=== PATIENT | male | born 1970 ===

== ENCOUNTER 2016-09-14 07:30 | Inpatient (IN) | payer OTHER ==
[~2016-09-14] VITALS: Ht 162.6 cm; Wt 81.6 kg
[2016-12-07] MEDS ORDERED: OMEGA 3-6-9 CO400 MG PO (12:13)
[2016-12-08] VITALS (10 sets, daily range): BP systolic 114–131; BP diastolic 73–89
[2016-12-08] MEDS ORDERED: Vancomycin 1gm inj IVPB ONE (06:35)
[2016-12-08] MEDS ORDERED: Surgicel 4in x 8in TOPIC ONE (06:35)
[2016-12-08] MEDS ORDERED: Bacitracin 50000 Units Vial ONE (06:35)
[2016-12-08] MEDS ORDERED: Thrombin 5000 units TOPIC ONE (06:35)
[2016-12-08] MEDS ORDERED: Bupivacaine w/Epi 0.5% 30ml Vial INJ ONE (06:35)
[2016-12-08] MEDS ORDERED: Lacri-Lube Opth Oint 3.5gm ONE (06:35)
--- NOTE | 2016-12-08 06:44 | Anethesia Preoperative Eval ---
Anesthesia Pre-op PMH/ROS General Date of Evaluation: Dec 08, 2016 Anesthesiologist: Erwin ASA Score: ASA 2 Mallampati Score Class I : Soft palate, uvula, fauces, pillars visible Class II: Soft palate, uvula, fauces visible Class III: Soft palate, base of uvula visible Class IV: Only hard plate visible Mallampati Classification: Class II Surgeon: Alma Rosa Diagnosis: Lumbar radicuopathy Surgical Procedure: L4-5, L5-S1 hemilaminotomy, foraminotomy, decompression Anesthesia History: none Family History: no anesthesia problems Allergies: Coded Allergies: No Known Allergies (Unverified , 12/07/16) Medications: see eMAR Past Medical History Cardiovascular: Reports: HTN, other - HLD, Denies: CAD, MO, arrhythmia, valve dz Pulmonary: Denies: COPD, HOLLY, asthma, other Gastrointestinal/Genitourinary: Reports: GERD - gastritis, with prior gi bleed , other - BPH, Denies: CRI, ESRD Neurologic/Psychiatric: Denies: CVA, TIA, dementia, depression/anxiety, other Endocrine: Denies: DM, hypothyroidism, other, steroids HEENT: Denies: SHOALWATER (L), SHOALWATER (R), cataract (L), cataract (R), glaucoma, other Hematology/Immune: Denies: DVT, anemia, bleeding disorder, other Musculoskeletal/Integumentary: Denies: DDD, DJD, OA, RA, edema, other PSxH Narrative: Denies Anesthesia Pre-op Phys. Exam Physician Exam Last Vital Signs Date Time Temp Pulse Resp B/P Pulse Ox O2 Delivery O2 Flow Rate FiO2 12/08/16 06:38 98.2 63 20 130/85 98 Room Air Constitutional: NAD Cardiovascular: RRR Respiratory: CTA Airway Exam Mallampati Score: Class II MO: limited ROM: full Teeth: intact Anesthesia Pre-op A/P Labs see chart Studies Pre-op Studies: EKG - SB Risk Assessment & Plan Assessment: ASA II Plan: GA Status Change Before Surgery: No Pre-Antibiotics Drug: Ancef 2g Given Within 1 Hr of Incision: Yes Time Given: 07:20 RIVKA CAVAZOS M.D. Dec 08, 2016 06:43
[2016-12-08] MEDS ORDERED: Ranitidine 50mg/2ml Inj ONE (07:00)
[2016-12-08] MEDS ORDERED: ceFAZolin 2gm/50ml Premix 50 ML IVPB ONE (07:00)
[2016-12-08] MEDS ORDERED: Midazolam 2mg/2ml Inj ONE (07:00)
[2016-12-08] MEDS ORDERED: Lidocaine 1% MPF 10mg/ml 5ml ONE (07:00)
[2016-12-08] MEDS ORDERED: Labetalol 5mg/ml 20ml vial IV ONE (07:00)
[2016-12-08] MEDS ORDERED: Propofol 10mg/ml 20ml IV ONE (07:00)
[2016-12-08] MEDS ORDERED: fentaNYL 250mcg/5ml ONE (07:00)
[2016-12-08] MEDS ORDERED: NS Irrig 1000ml ONE (07:00)
[2016-12-08] MEDS ORDERED: LR 1000ml ONE (07:00)
[2016-12-08] MEDS ORDERED: Zemuron 50mg/5ml Inj IV ONE (07:00)
[2016-12-08] MEDS ORDERED: Sterile Water Irrig 1000ml IRRIG ONE (07:00)
[2016-12-08] MEDS ORDERED: Metoclopramide 10mg/2ml Inj ONE (07:00)
[2016-12-08] MEDS ORDERED: Dexamethasone 4mg/ml vial ONE (07:00)
--- NOTE | 2016-12-08 07:17 | Pre-Procedure Note/Attestation ---
Pre-Procedure Note/Attestation Complete Prior to Procedure Planned Procedure: left Procedure Narrative: Left sided L45,5S1 hemilaminotomy foraminotomy microdiscectomy Indications for Procedure Pre-Operative Diagnosis: L45 and L5S1 herniation Attestation I attest that I discussed the nature of the procedure; its benefits; risks and complications; and alternatives (and the risks and benefits of such alternatives ), prior to the procedure, with the patient (or the patient's legal development representative). I attest that, if there was a reasonable possibility of needing a blood transfusion, the patient (or the patient's legal development representative) was given the [facility] standardized written summary, pursuant to the [place] Blood Safety Act ([place] Health and Safety Code # 1645, as amended). I attest that I re-evaluated the patient just prior to the surgery and that there has been no change in the patient's H&P, except as documented below: JJ ORELLANA Dec 08, 2016 07:17
--- NOTE | 2016-12-08 07:18 | Brief Operative Note ---
Immediate Post Operative Note Operative Note Chief Complaint: intractable back and leg pain Pre-op Diagnosis: L45 and L5S1 herniation Procedure: Left sided L45,5S1 hemilaminotomy foraminotomy microdiscectomy Post-op Diagnosis: same as pre-op Findings: consistent w/pre-op dx studies Surgeon: Alma Rosa Certified Juvenile Probation Officer: Shelbie Anesthesia: general Complications: none Condition: stable Estimated Blood Loss: minimal Implant(s) used?: JJ Bullock Dec 08, 2016 07:18
[2016-12-08] MEDS ORDERED: LR 1000ml 1,000 ML IVLG SCH (08:02)
--- NOTE | 2016-12-08 08:02 | Immediate Post-Op Evaluation ---
Immediate Post-Op Evalulation Immediate Post-Op Evalulation Procedure: L4-5, L5-S1 hemilaminotomy, foraminotomy, decompression Date of Evaluation: Dec 08, 2016 Time of Evaluation: 09:20 IV Fluids: 1.4L Blood Products: 0 Estimated Blood Loss: 150 Urinary Output: 250 Blood Pressure Systolic: 116 Blood Pressure Diastolic: 74 Pulse Rate: 63 Respiratory Rate: 16 O2 Sat by Pulse Oximetry: 99 Temperature (Fahrenheit): 97.4 Pain Score (1-10): 0 Nausea: No Vomiting: No Complications 0 Patient Status: awake, reacts, patent, none Hydration Status: adequate Drug: Ancef 2g Given Within 1 Hr of Incision: Yes Time Given: 07:20 RIVKA CAVAZOS M.D. Dec 08, 2016 08:02
[2016-12-08] MEDS ORDERED: DiphenhydrAMINE 50mg/ml Inj IVP PRN (08:15)
[2016-12-08] MEDS ORDERED: fentaNYL 100 mcg/2 mL IV PRN (08:15)
[2016-12-08] MEDS ORDERED: Hydromorphone 0.5mg/0.5ml inj IVP PRN (08:15)
[2016-12-08] MEDS ORDERED: Labetalol 5mg/ml 20ml vial IV PRN (08:15)
[2016-12-08] MEDS ORDERED: Metoclopramide 10mg/2ml Inj IVP PRN ×3 (08:15→11:00)
[2016-12-08] MEDS ORDERED: Midazolam 2mg/2ml Inj IVP PRN (08:15)
--- NOTE | 2016-12-08 10:51 | Diagnostic Imaging Report ---
Indication: PAIN, intraoperative Technique: Digital intraoperative imaging Comparison: None Findings: Intraoperative images demonstrate surgical tool projected posterior to what is presumably the L5 vertebral body Impression: Intraoperative imaging, as described
[2016-12-08] MEDS ORDERED: Naloxone 0.4mg/ml Inj IVP PRN (11:00)
[2016-12-08] MEDS ORDERED: Norco 5mg/325mg tab ORAL PRN (11:00)
[2016-12-08] MEDS ORDERED: Norco 7.5mg/325mg tab ORAL PRN ×2 (11:00)
[2016-12-08] MEDS ORDERED: HYDROmorphone 1mg/ml Carpuject SUBQ PRN (11:00)
[2016-12-08] MEDS ORDERED: Milk of Magnesia 30ml Ud ORAL PRN (11:00)
[2016-12-08] MEDS ORDERED: HYDROmorphone 1mg/ml Carpuject IVP PRN (11:00)
[2016-12-08] MEDS: NS w/KCl 20mEq 1,000 ML IV SCH ×3 (12:02→22:19)
[2016-12-08] MEDS: Dexamethasone 4mg/ml vial IVP SCH ×2 (12:02→18:12)
[2016-12-08] MEDS: ceFAZolin sod 1 GM in D5W 55 ML IV SCH ×2 (16:01→22:18)
--- NOTE | 2016-12-08 17:15 | Consultation ---
History of Present Illness General Date patient seen: Dec 08, 2016 Time patient seen: 17:13 Chief Complaint: low back pain Referring physician: Erlin St MD Reason for Consultation: managment of medical issues in postop setting Present Illness HPI 46 y/o man with hx of lumbar stenosis with radiculopathy from lumbar disk herniation, s/p Left sided L45,5S1 hemilaminotomy foraminotomy microdiscectomy earlier today, no periop or postop complications. Postop pain well controlled. No chest pain or dyspnea, no n/v. Allergies: Coded Allergies: No Known Allergies (Unverified , 12/07/16) Medication History Scheduled Fish Oil/Borage/Flax/Om3,6,9#1 ([place] 3-6-9 Complex Softgel), 2,000 MG PO TID, ( Reported) Patient History History Provided By: Patient Healthcare decision maker CHYNA Resuscitation status Full Code Advanced Directive on File No Past Medical/Surgical History Past Medical/Surgical History: (1) HNP (herniated nucleus pulposus), lumbar Family History Family History: (1) Family history in first degree relatives is unremarkable Social History Social History: (1) No significant social history Review of Systems Constitutional: Denies: chills, fever, malaise, no symptoms, other, see HPI, sweats, weakness Eye: Denies: acuity changes, blurred vision, discharge, double vision, eye pain , no symptoms, nose congestion, nose pain, other, see HPI, tearing ENT: Denies: ear discharge, ear pain, hearing loss, mouth pain, nasal discharge , no symptoms, nose congestion, nose pain, other, see HPI, throat pain, throat swelling Respiratory: Denies: GRIFFITH, cough, no symptoms, orthopnea, other, see HPI, shortness of breath, sputum, stridor, wheezing Cardiovascular: Denies: PND, chest pain, edema, no symptoms, other, palpitations, see HPI, syncope Gastrointestinal: Denies: abdominal pain, constipation, diarrhea, hematemesis, melena, nausea, no symptoms, other, see HPI, vomiting Genitourinary: Denies: discharge, dysuria, frequency, hematuria, incontinence, no symptoms, other, pain, retention, see HPI, urgency, vag bleed/dc Musculoskeletal: Reports: back pain Skin: Denies: change in color, change in hair/nails, dryness, lesions, no symptoms, other, rash, see HPI Psychiatric: Denies: HI, SI, anxiety, depressed feelings, emotional problems, hallucinations, no symptoms, other, prior hx, see HPI Endocrine: Denies: excessive sweating, flushing, increased thirst, increased urine, intolerance to temperature, no symptoms, other, see HPI, unexplained weight loss Hematologic/Lymphatic: Denies: anemia, blood clots, diathesis, easy bleeding, easy bruising, no symptoms, other, see HPI, swollen glands Physical Exam Physical Exam Narrative General: alert, cooperative, no distress, appears stated age Head: normocephalic, without obvious abnormality, atraumatic Eyes: conjunctivae/corneas clear. PERRL, EOM's intact Throat: lips, mucosa, and tongue normal. MMM Neck: supple, symmetrical, trachea midline, and no JVD Lungs: clear to auscultation bilaterally Heart: regular rate and rhythm, S1, S2 normal, no murmur, click, rub or gallop Abdomen: soft, non-tender, non-distended, bowel sounds normal; no masses or organomegaly Extremities: extremities normal, atraumatic, no cyanosis or edema Pulses: 2+ and symmetric Skin: skin color, texture, turgor normal; no rashes or lesions Neurologic: grossly normal, no focal deficits Last 24 Hour Vital Signs Date Time Temp Pulse Resp B/P Pulse Ox O2 Delivery O2 Flow Rate FiO2 12/08/16 16:00 98.2 76 18 119/73 99 Room Air 12/08/16 10:15 98.2 65 15 128/87 98 Nasal Cannula 3.0 12/08/16 10:00 65 19 131/89 98 Nasal Cannula 3.0 12/08/16 09:45 65 11 124/85 97 Nasal Cannula 3.0 12/08/16 09:30 63 19 118/76 99 Simple Mask 6.0 12/08/16 09:25 64 19 119/79 99 Simple Mask 6.0 12/08/16 09:20 64 19 114/78 100 Simple Mask 6.0 12/08/16 09:18 63 16 99 12/08/16 09:15 97.7 64 20 116/74 98 Simple Mask 6.0 12/08/16 06:38 98.2 63 20 130/85 98 Room Air Height (Feet): 5 Height (Inches): 4.00 Weight (Pounds): 180 Medications Current Medications Medications (Trade) Dose Ordered Sig/Shaw Route PRN Reason Start Time Stop Time Status Last Admin Dose Admin Acetaminophen (Tylenol) 650 mg Q4H PRN ORAL headache or temp>101 12/08/16 11:00 01/07/17 10:59 Acetaminophen/ Hydrocodone Bitart ([place] 5/325) 1 tab Q3H PRN ORAL pain score 1-3 12/08/16 11:00 12/15/16 10:59 Acetaminophen/ Hydrocodone Bitart ([place] 7.5/325) 1 ea Q3H PRN ORAL pain score 4-6 12/08/16 11:00 12/15/16 10:59 Acetaminophen/ Hydrocodone Bitart ([place] 7.5/325) 2 ea Q3H PRN ORAL pain scale 7-10 12/08/16 11:00 12/15/16 10:59 Carisoprodol (Soma) 350 mg TIDPRN PRN ORAL SPASM 12/08/16 11:00 01/07/17 10:59 Cefazolin Sodium/ Dextrose (Ancef/D5W) 55 ml @ 110 mls/hr Q8H IV 12/08/16 15:00 12/09/16 07:29 12/08/16 16:01 Dexamethasone Sodium Phosphate (Decadron 4mg/ml vial) 4 mg Q6HR IVP 12/08/16 12:00 12/09/16 06:01 12/08/16 12:02 Docusate Sodium (Colace) 100 mg TWICE A DAY ORAL 12/08/16 18:00 01/07/17 17:59 Hydromorphone HCl (Dilaudid) 1 mg Q4H PRN SUBQ Mild Pain (Pain Scale 1-3) 12/08/16 11:00 12/15/16 10:59 Hydromorphone HCl (Dilaudid) 2 mg Q3H PRN SUBQ Severe Pain (Pain Scale 7-10) 12/08/16 11:00 12/15/16 10:59 Hydromorphone HCl (Dilaudid) 2 mg Q4H PRN SUBQ Moderate Pain (Pain Scale 4-6) 12/08/16 11:00 12/15/16 10:59 Hydromorphone HCl 1 mg 1 mg Q2H PRN IVP Breakthrough Pain 12/08/16 11:00 12/15/16 10:59 Magnesium Hydroxide (Mom) 30 ml QIDPRN PRN ORAL Constipation 12/08/16 11:00 01/07/17 10:59 Metoclopramide HCl (Reglan) 10 mg Q6H PRN IVP Nausea & Vomiting 12/08/16 11:00 01/07/17 10:59 Naloxone HCl (Narcan) 0.1 mg PRN PRN IVP RR<12/min, pt unarousable 12/08/16 11:00 01/07/17 10:59 Ondansetron HCl (Zofran) 4 mg Q6H PRN IVP Nausea & Vomiting 12/08/16 11:00 01/07/17 10:59 Sodium Chloride (NS w/KCl 20mEq) 1,000 ml @ 100 mls/hr Q10H IV 12/08/16 12:00 01/07/17 11:59 12/08/16 12:02 Temazepam (Restoril) 15 mg HSPRN PRN ORAL Insomnia 12/08/16 21:00 12/15/16 20:59 Assessment/Plan Problem List: (1) HNP (herniated nucleus pulposus), lumbar Assessment & Plan: s/p Left sided L45,5S1 hemilaminotomy foraminotomy microdiscectomy Post operative recommendations include: - encourage mobilization/ambulation - encourage incentive spirometry to optimize pulmonary hygiene - DVT/GI prophylaxis as appropriate - ctm CBC and hemodynamics - ctm electrolytes, adjust/replete prn - PT/OT/ST, if indicated - pain control, supportive care, bowel regimen - DC planning ICD Codes: M51.26 - Other intervertebral disc displacement, lumbar region SNOMED: [id number] ESDRAS MARTÍNEZ Dec 08, 2016 17:15
--- NOTE | 2016-12-08 17:33 | 48 Hour Post Anesthesia Eval ---
Post Anesthesia Evaluation Procedure: L4-5, L5-S1 hemilaminotomy, foraminotomy, decompression Date of Evaluation: Dec 08, 2016 Time of Evaluation: 17:32 Blood Pressure Systolic: 119 0: 72 Pulse Rate: 99 Respiratory Rate: 18 Temperature (Fahrenheit): 98.2 O2 Sat by Pulse Oximetry: 99 Airway: patent Nausea: Yes Vomiting: Yes Pain Intensity: 2 Hydration Status: adequate Cardiopulmonary Status: Stable Mental Status/LOC: patient returned to baseline Follow-up Care/Observations: 0 Post-Anesthesia Complications: 0 Follow-up care needed: N/A Elias Harrison MD Dec 08, 2016 17:33
[2016-12-08] MEDS: Docusate 100mg cap ORAL SCH (18:12)
[2016-12-09] VITALS: BP 124/78
[2016-12-09] MEDS: Dexamethasone 4mg/ml vial IVP SCH ×2 (00:18→06:09)
[2016-12-09] MEDS: NS w/KCl 20mEq 1,000 ML IV SCH (01:43)
[2016-12-09 04:00] VITALS: BP 126/84
[2016-12-09] MEDS: ceFAZolin sod 1 GM in D5W 55 ML IV SCH (06:09)
[2016-12-09 08:00] VITALS: BP 124/80
[2016-12-09] MEDS: Docusate 100mg cap ORAL SCH (09:00)
[2016-12-09 12:00] VITALS: BP 132/87
--- NOTE | 2016-12-09 12:38 | Discharge Summary ---
Discharge Summary Hospital Course Date of Admission Dec 08, 2016 at 05:38 Date of Discharge Dec 09, 2016 Admitting Diagnosis Lumbar stenosis Reason for Hospitalization: lumbar surgery HPI Vu Maria is a 46 year old male who was admitted on Dec 08, 2016 at 05:38 for Lumbar Herniated,Radiculopathy Consultations Spine Surgery Procedures Lumbar surgery (see operative note) Hospital Course 46 y/o man with hx of lumbar stenosis, s/p lumbar surgery without periop or postop complications. Once pain was tolerated on PO pain meds and able to ambulate without difficulty, was dced home in stable condition, will f/u with surgeon in 1-2 weeks Discharge Medications Continued Medications: Fish Oil/Borage/Flax/Om3,6,9#1 ([place] 3-6-9 Complex Softgel) 400 Mg Capsule 2000 MG PO TID, CAP Discharge Condition Upon Discharge: stable Discharge Disposition Patient was discharged to Home (01) Discharge Diagnoses: (1) HNP (herniated nucleus pulposus), lumbar ESDRAS MARTÍNEZ Dec 09, 2016 12:38
--- NOTE | 2016-12-09 22:19 | Operative Note - Dictated ---
DATE OF OPERATION: 12/08/2016 SURGEON: Erlin St MD, Orthopaedic Spine Surgeon JEWEL HOLE ROUGH OPENER SURGEON: Salinas Morfin M.D. ANESTHESIA: General endotracheal anesthesia. PREOPERATIVE DIAGNOSES: 1. Intractable back pain. 2. Intractable leg pain. 3. Worsening radiculopathy. 4. Weakness. 5. Herniated nucleus pulposus, L4-L5 and L5-S1 herniation. 6. Neural foraminal stenosis, L4-L5 and L5-S1. POSTOPERATIVE DIAGNOSES: 1. Intractable back pain. 2. Intractable leg pain. 3. Worsening radiculopathy. 4. Weakness. 5. Herniated nucleus pulposus, L4-5 and L5-S1 herniation. 6. Neural foraminal stenosis, L4-5 and L5-S1. PROCEDURES PERFORMED: 1. Left-sided L4-L5 and L5-S1 microdiskectomy. 2. L4-L5 and L5-S1 hemilaminotomy, foraminotomy and medial facetectomy. 3. L4-L5 and L5-S1 neural foraminotomy 4. Use of intraoperative microscope. 5. Supervision and interpretation of intraoperative fluoroscopy. 6. Supervision and interpretation of somatosensory-evoked potential and free running EMG monitoring. EBL: Less than 100 mL. COMPLICATIONS: None. INDICATIONS FOR THE PROCEDURE: Vu Maria presents for intractable back pain and radiculopathy. Vu tried and failed a prolonged course of conservative management, including but not limited to chiropractic therapy, physical therapy, nonsteroidal anti-inflammatory drugs, medication, ice packs as well as epidural injection. Despite these therapies Vu still developed recalcitrant pain and elected for definitive management in the form of left-sided L4-L5 and L5-S1 microdiskectomy; L4-5 and L5-S1 hemilaminotomy, foraminotomy and medial facetectomy; L4-L5 and L5-S1 neural foraminotomy through a transpedicular intraforaminal approach. We had a long discussion with him regarding definitive surgical treatment options. Vu MRI demonstrated herniated nucleus pulposus, L4-5 and L5-S1 herniation and neural foraminal stenosis, L4-5 and L5-S1 and as a result I felt he would benefit from the diskectomy as well as neural foraminotomy at this level. We had a long discussion with Vu regarding the risks, alternatives, and benefits of surgery. Our description of the risks included a discussion in person as well as a signed consent which detailed all pertinent risks and the procedure itself. Briefly, our discussion included but was not limited to infection, bleeding, pseudarthrosis, spinal cord injury, neurovascular injury, dural tear, CSF leak, neuropathy, paralysis, permanent weakness/drop foot, paresthesias blindness, palsy and weakness. The patient understood there may be a need for revision surgery or additional procedures. Approach related complications including dysphonia, dysphagia, blindness, permanent vocal cord and neural injury, hematoma, swallowing and breathing difficulty. Medical complications including liver, kidney, shock, and cardiopulmonary failure. Anesthesia complications including , swelling. Damage to the musculature, larynx (voice injury or loss), esophagus (throat), trachea, blood vessels and muscles (muscular sprain) and lungs (pneumothorax) during this surgical procedure. Injury to deeper structures may be temporary or permanent. The patient understood these and elected to proceed. A written and verbal consent was given. We discussed the pros and cons of all the alternatives. We discussed the uncertainties associated with the decision. Afterwards I assessed the patients understanding and explored their preferences. All questions were answered and no guarantees were given. Medical clearance was obtained prior to surgery. OPERATIVE FINDINGS: A broad-based disk herniation at L4-5 and L5-S1(level) which encroached on the thecal sac and neural foraminal elements therein. This disk was acute in nature and not calcified. It was mobile and free floating and resected easily. There was also neural foraminal stenosis at L4-5 and L5-S1. DESCRIPTION OF PROCEDURE: Under the benefit of general endotracheal anesthesia and with the assistance of the entire operative team, the patient was moved from the [facility] onto the operative table in the prone position on a Dinesh frame. The head was secured and positioned appropriately. Bilateral arms were secured with Gel pads and foam and all bony prominences were padded. The bilateral lower extremity SCD and MARY hose we replaced for DVT prophylaxis. A surgical timeout was called which corroborated our planned procedure. Preoperative Antibiotics were administered within 30 minutes of the incision for prophylaxis. Decadron was given for preoperative steroids. Using lateral radiography, the operative levels were delineated. An incision was marked based on our interpretation of lateral radiography and afterwards the body was prepped and draped in the usual sterile manner. The family was notified that we were ready to commence surgery and were called in the waiting room hourly for updates. An incision was based on our lateral fluoroscopic image to center the incision at the L5-S1 interspace. The wound was prepped and draped in the usual sterile fashion. Using a scalpel a midline incision was taken down through the skin and subcutaneous tissues until the overlying dandy lamina of L4-5 and L5-S1 were visualized. Next using meticulous hemostasis hemilamotomies were dissected and retractors were placed. Using a Pep dental we confirmed placement at the L4-5 and L5-S1 interspace. We next turned our attention our decompression. A standard hemilaminotomy foraminotomy medial facetectomy was performed at each level in standard fashion using a Midas-Cornell type AM8 drill bit, straight and angled curettage, and Kerrison 4 rongeurs until the lateral thecal sac margin and traversing nerve root was visualized. All remainders of the ligamentum flavum and lateral bony margins were resected in total with angled curettage and Kerrison4 rongeurs until the lateral thecal sac margin and traversing nerve root was visualized and decompressed. We next turned our attention toward our L4-5 and L5-S1 microdiskectomy on the left side. A Alva 4 was used to gently mobilize the thecal sac medially and this was held retracted with a bayonetted nerve root retractor. It was at this point that we noted a large broad-based disk protrusion with encroachment dorsally on the thecal sac neural foraminal contents. A bayonet and nerve root retractor was then placed carefully to retract the thecal sac and a diskectomy was performed using a combination of a long handled 15 blade scalpel, downgoing and straight pituitaries and downgoing curettage. Afterward the disk space was irrigated twice with 20 mL of antibiotic-impregnated saline. All loose and free-floating disk fragments were carefully resected with a narrow pituitary. Having been satisfied with our decompression after our discectomy of all neural elements we next turned our attention to our neural foraminoplasty/foraminotomy. This was performed with kerrison ronguers and pituataries. Afterwards hemostasis was obtained with 60 mL of antibiotic-impregnated saline followed by FloSeal and Gelfoam. After sponge and needle count were found to be correct, next we turned our attention to closure. Closure consisted of 1-0 Vicryl in standard interrupted fashion. Zosyn was placed deep to the fascia and superficial to the fascia for Antibiotic prophylaxis. Skin closure was performed with 2-0 Vicryl in interrupted fashion followed by a running Monocryl for the skin. Final dressings consisted of Dermabond for the superficial skin, Telfa and Tegaderm. The patient tolerated the procedure well. The patient was extubated after the conclusion of surgery without incident. We discussed the findings of the surgery with the family upon completion of the case. At this point the patient will be transferred to the spine floor for further observation. Erlin St M.D. DR: ERIC JOB#: [id number] CC: ARIES
--- NOTE | 2016-12-10 12:09 | Discharge Summary ---
DATE OF ADMISSION: 12/08/2016 DATE OF DISCHARGE: 12/09/2016 REASON FOR ADMISSION: Herniated nucleus pulposus, L4-L5 and L5-S1, left sided. PROCEDURES PERFORMED DURING ADMISSION: Left-sided microdiscectomy, hemilaminotomy, and foraminotomy. DISCHARGE PHYSICAL EXAM: 1. Patient was ambulating with and without the assistance of physical therapy 2. Prior to discharge home incision was clean and dry with minimal swelling 3. Follows commands 4. Alert and oriented 5. Gorman discontinued, voiding 6. Incentive spirometer at bedside 7. IVF hep locked MOTOR: Demonstrates expected postoperative bulk and tone. Moves biceps, triceps, and deltoid musculature on command. Moves hip flexors, quadriceps, tibialis anterior, EHL, gastrocsoleus musculature on command as well. TREATMENT RENDERED: 1. Daily nursing care. 2. Physical Therapy. 3. Occupational Therapy. 4. Intravenous medications. 5. Oral medications. 6. Daily postoperative examinations by Spine surgery team. CONDITION OF PATIENT ON DISCHARGE: The condition on discharge is stable for discharge to home. DISCHARGE INSTRUCTIONS: Our specific instructions relating to physical activity, medications diet and follow-up care are detailed in our standard operative folder and were given to this patient prior to surgery. We will however summarize these briefly as stated below. Regarding physical activity we would like the patient to limit their flexion, extension and rotation. We also require a limitation on their bending lifting and twisting. All medication has been called in prior to surgery to their pharmacy of choice. They can resume their regular diet once tolerated. We would like them to shower and limit soaking the wound in a tub/Jacuzzi/the ocean for a period of one month or until the incision is completely healed. We will have them follow up in our office in three weeks time for their regularly scheduled appointment. They understand to call our office tomorrow to schedule the time for their three week followup appointment. The patient will notify us should they experience any increase in the severity of pain, redness/swelling/ or drainage from their incision. Erlin St M.D. DR: RASTA JOB#: [id number] CC:
== END 2016-12-09 15:26 | disposition home or self-care (01) | DRG 520 ==
LOC: SDSOVERFLO 12-08 05:38 → 3E 12-08 10:31
DX: M51.16 Intervertebral disc disorders with radiculopathy, lumbar region (principal); E78.5 Hyperlipidemia, unspecified; M51.17 Intervertebral disc disorders with radiculopathy, lumbosacral region; M48.06 Spinal stenosis, lumbar region; M48.07 Spinal stenosis, lumbosacral region; F41.9 Anxiety disorder, unspecified; V89.2XXS Person injured in unspecified motor-vehicle accident, traffic, sequela
CPT/HCPCS: 36415; 72020; 76001; 86850; 86900; 86901; 87081; 94003; 94150; J2250; J2405; J2765; J2780